=== PATIENT | female | born 1995 | race Caucasian/White ===

== ENCOUNTER 2017-08-25 19:05 | Emergency (ER) | payer OTHER ==
[~2017-08-25] VITALS: Ht 157.5 cm; Wt 60.8 kg
[2017-08-25] MEDS ORDERED: PRENATAL + DHA1 EAC1 (19:23)
== END 2017-08-26 00:53 | disposition home or self-care (01) ==
LOC: ER 19:05
DX: O21.0 Mild hyperemesis gravidarum (principal); Z34.01 Encounter for supervision of normal first pregnancy, first trimester

== ENCOUNTER 2018-02-23 10:03 | Inpatient (IN) | payer OTHER ==
[~2018-02-23] VITALS: Ht 160 cm; Wt 2.7 kg
[~2018-02-23 10:03] MED LIST: PRENATAL + DHA1 EAC1
== END 2018-02-25 18:55 | DRG 788 ==
LOC: LDR 10:03 → OB/GYN 13:23
PROVIDERS: Obstetrics & Gynecology Obstetrics
PROC: 4A1HXCZ Monitoring of Products of Conception, Cardiac Rate, External Approach (ICD-10-PCS; 2018-02-23)
PROC: 10D00Z1 Extraction of Products of Conception, Low, Open Approach (ICD-10-PCS; principal; 2018-02-23 11:00)
DX: O64.1XX0 Obstructed labor due to breech presentation, not applicable or unspecified (principal); Z3A.38 38 weeks gestation of pregnancy; Z37.0 Single live birth; Z22.330 Carrier of Group B streptococcus